=== PATIENT | female | born 1950 | race Caucasian/White ===

== ENCOUNTER 2025-01-22 20:30 | Emergency (ER) | payer OTHER ==
[~2025-01-22] VITALS: Ht 162.6 cm; Wt 77.1 kg
[2025-01-22] MEDS ORDERED: OLANZAPINE 10 MG VIAL IM ONE ×2 (20:55→21:00)
[2025-01-22 21:09] LABS: PLATELET COUNT (AUTO) 207 K/uL (150-450); RED BLOOD CELL COUNT(AUTO) 4.57 MIL/uL (4.0-5.2); RED CELL DISTRIBUTION WIDTH 14.1 % (11.5-15.0); WHITE BLOOD COUNT (AUTO) 7.4 K/uL (4.3-11.0)
[2025-01-22 21:18] LABS: CALCIUM, SERUM 8.7 mg/dL (8.5-10.1); CREATININE 1.3 mg/dL (0.6-1.3); SODIUM SERUM 142 mmol/L (136-145); UREA NITROGEN, BLOOD 25 mg/dL (7-18)
[2025-01-22 21:24] LABS: ALCOHOL, BLOOD < 3 mg/dL (0-10); ASPARTATE AMINOTRANSFERASE 31 U/L (15-37); TOTAL PROTEIN, SERUM 8.3 g/dL (6.4-8.2)
[2025-01-23 00:16] LABS: AMPHETAMINE, URINE NEGATIVE (NEGATIVE); BARBITURATE, URINE NEGATIVE (NEGATIVE); BENZODIAZEPINE, URINE NEGATIVE (NEGATIVE); CANNABINOID, URINE NEGATIVE (NEGATIVE); COCCAINE, URINE NEGATIVE (NEGATIVE); OPIATE, URINE NEGATIVE (NEGATIVE)
[2025-01-23 00:19] LABS: APPEARANCE,URINE CLEAR (CLEAR); BLOOD, URINE NEGATIVE Ery/uL (NEGATIVE); LEUKOCYTE ESTERASE ,URINE 1+ (NEGATIVE); NITRITE, URINE POSITIVE (NEGATIVE); UGLUCOSE NEGATIVE (NEGATIVE)
[2025-01-23] MEDS ORDERED: LORAZEPAM INJ 2 MG/ML VIAL ONE (00:21)
[2025-01-23] MEDS: LORAZEPAM INJ 2 MG/ML VIAL IM ONE (00:33)
[2025-01-23 00:34] LABS: ADD URINE CULTURE YES; SQUAMOUS EPITHELIAL CELL,UR 0-2 /HPF (None Seen)
[2025-01-23] MEDS: NITROFURANTOIN/MONOHYDRATE MACROCRYSTALS 100 MG CAPSULE PO ONE (00:58)
[2025-01-23 07:19] VITALS: BP 124/70; TEMP 98.2; O2SAT 98
== END 2025-01-23 08:58 ==
LOC: ER 20:33
DX: R45.1 Restlessness and agitation (principal); F02.811 Dementia in other diseases classified elsewhere, unspecified severity, with agitation; I10 Essential (primary) hypertension; F31.9 Bipolar disorder, unspecified; G30.9 Alzheimer's disease, unspecified; Z79.899 Other long term (current) drug therapy
CPT/HCPCS: 99285; 85025; 80048; 80076; 81003; 36415; 80143; 80320; 80307; 96372; 87086; 81001; J2060; J1200; 87186-TC; G0480; J3490